=== PATIENT | male | born 1965 | race Caucasian/White ===

== ENCOUNTER 2020-02-20 17:14 | Emergency (ER) | payer MEDICAID ==
[~2020-02-20] VITALS: Ht 175.3 cm; Wt 100.0 kg
[2020-02-20 17:27] VITALS: BP 137/81
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
[2020-02-20] MEDS ORDERED: ACETAMINOPHEN 500 MG TABLET ONE (19:15)
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
--- NOTE | 2020-02-20 19:49 | NUR ---
REVIEWED DC INSTRUCTIONS WITH PT, PT VERBALIZED UNDERSTANDING.
== END 2020-02-20 20:18 | disposition home or self-care (01) ==
LOC: ED 19:19
DX: F33.9 Major depressive disorder, recurrent, unspecified (principal); I10 Essential (primary) hypertension; E11.9 Type 2 diabetes mellitus without complications
CPT/HCPCS: 99283